=== PATIENT | female | born 1935 | race African-American/Black ===

== ENCOUNTER 2023-02-11 06:27 | Inpatient (IN) | payer MEDICARE, OTHER ==
[~2023-02-11] VITALS: Ht 162.6 cm; Wt 68.2 kg
[2023-02-11] MEDS ORDERED: ACETAMINOPHEN 1000 MG/ISO-OSM 100 ML IV ONE (06:45)
[2023-02-11] MEDS ORDERED: SODIUM CHLORIDE 0.9% 1,400 ML IV ONE (06:45)
[2023-02-11] MEDS ORDERED: 0.9% SODIUM CHLORIDE 10 ML SYRINGE IVP PRN (06:45)
[2023-02-11] MEDS ORDERED: VANCOMYCIN 1GM/WATER(PEG/NADA) 200 ML IV ONE (06:45)
[2023-02-11 06:58] LABS: HEMATOCRIT 26.8 % (36-46); HEMOGLOBIN 8.5 g/dL (12.0-16.0); MEAN CORPUSCULAR HEMOGLOBIN 35.6 pg (26.0-34.0); MEAN CORPUSCULAR HGB CONC 31.6 G/dL (31.0-37.0); MEAN CORPUSCULAR VOLUME 113 fL (80-100); PLATELET COUNT (AUTO) 204 K/uL (150-450); RED BLOOD CELL COUNT(AUTO) 2.38 MIL/uL (4.00-5.20); RED CELL DISTRIBUTION WIDTH 16.8 % (11.5-14.5); WHITE BLOOD COUNT (AUTO) 24.6 K/uL (4.5-11.0)
[2023-02-11 07:11] LABS: INR 1.5 (0.9-1.1); PROTHROMBIN TIME 15.7 SEC (9.4-11.6)
[2023-02-11 07:13] LABS: ALANINE AMINOTRANSFERASE 27 U/L (12-78); ALBUMIN 2.3 g/dL (3.4-5.0); ALKALINE PHOSPHATASE 81 U/L (46-116); ANION GAP 12 mmol/L (8-16); ASPARTATE AMINOTRANSFERASE 69 U/L (15-37); BILIRUBIN,TOTAL 0.6 mg/dL (0.1-1.0); CALCIUM, TOTAL 8.4 mg/dL (8.8-10.5); CARBON DIOXIDE 26 mmol/L (22-29); CHLORIDE 100 mmol/L (98-107); CREATININE 4.32 mg/dL (0.60-1.30); GLOMERULAR FILTR. RATE CALC 12 mL/min (>60); GLUCOSE,RANDOM 84 mg/dL (70-110); SODIUM SERUM 137 mmol/L (136-145); TOTAL PROTEIN, SERUM 7.7 g/dL (6.4-8.2); UREA NITROGEN, BLOOD 27 mg/dL (7-18)
[2023-02-11 07:14] LABS: POTASSIUM 2.7 mmol/L (3.5-5.1)
[2023-02-11 07:25] LABS: COVID AG,FIA SOURCE NASAL SWAB
[2023-02-11 07:25] LABS: LACTIC ACID 3.7 mmol/L (0.4-2.0)
[2023-02-11 07:29] LABS: TROPONIN I-HIGH SENSITIVITY 279 ng/L (<51)
[2023-02-11 07:30] LABS: B-TYPE NATRIURETIC PEPTIDE 1170 pg/mL (0-100)
[2023-02-11 07:35] LABS: BAND NEUTROPHILS % (MANUAL) 31 % (0-5); LYMPHOCYTES % (MANUAL) 2 % (22-44); METAMYELOCYTES % 1 % (0-0); MONOCYTES % (MANUAL) 5 % (2-9); MYELOCYTES % 1 % (0-0); SEGMENTED NEUTROPHILS % 60 % (40-70); TOTAL CELLS COUNTED 100
[2023-02-11 07:37] LABS: RBC MORPHOLOGY COMMENT ABNORMAL RBC MORPH
[2023-02-11 08:07] LABS: INFLUENZA TYPE A NEGATIVE FOR TYPE A (NEGATIVE); INFLUENZA TYPE B NEGATIVE FOR TYPE B (NEGATIVE); SARS-COV2 (COVID) ANTIGEN,FIA Negative (Negative)
[2023-02-11] MEDS ORDERED: PRED5DRO25 OD (09:13)
[2023-02-11] MEDS ORDERED: FLUT1BLS19 IH (09:13)
[2023-02-11] MEDS ORDERED: APIX2.5T PO (09:13)
[2023-02-11] MEDS ORDERED: FOLI0.8T22 PO (09:13)
[2023-02-11] MEDS ORDERED: BRIM5DRO10 OD (09:13)
[2023-02-11] MEDS ORDERED: DOCU-385 PO (09:13)
[2023-02-11] MEDS ORDERED: FERR325T27 PO (09:13)
[2023-02-11] MEDS ORDERED: SENN-376 PO (09:13)
[2023-02-11] MEDS ORDERED: BUDE10.26 IH (09:13)
[2023-02-11] MEDS ORDERED: ATOR40TA28 PO (09:13)
[2023-02-11] MEDS ORDERED: CLOP75TA60 PO (09:13)
[2023-02-11] MEDS ORDERED: TRAV2.5D7 OD (09:13)
[2023-02-11] MEDS ORDERED: EPOE10I SQ (09:13)
[2023-02-11] MEDS ORDERED: POTASSIUM CHL 10 MEQ/WATER 50 ML IV ONE (09:45)
[2023-02-11] MEDS ORDERED: NOREPINEPHRINE BITARTRATE 16 MG in SODIUM CHLORIDE 0.9% 234 ML IV PRN (10:00)
[2023-02-11] MEDS ORDERED: LORazepam 2 MG/ML VIAL IVP ONE (10:15)
[2023-02-11 12:00] VITALS: BP 87/55; PULSE 100; RESP 27; TEMP 97.9
[2023-02-11] MEDS ORDERED: GENTAMICIN 120 MG/NACL ISO-OSM 100 ML IV ONE (13:00)
[2023-02-11] MEDS ORDERED: GENTAMICIN 80 MG/NACL ISO-OSM 50 ML IV PRN (13:00)
[2023-02-11] MEDS ORDERED: SODIUM CHLORIDE 0.9% 250 ML IV ONE ×2 (13:10→13:50)
[2023-02-11] MEDS: FOLIC ACID/VIT B COMPLEX AND C TABLET PO SCH (15:00)
[2023-02-11] MEDS ORDERED: BISACODYL 10 MG RECTAL RECTAL SUPPOSITORY PR PRN (15:15)
[2023-02-11] MEDS ORDERED: MAGNESIUM HYDROXIDE SUSPENSION 30 ML UDCUP PO PRN (15:15)
[2023-02-11] MEDS ORDERED: ACETAMINOPHEN 325 MG TABLET PO PRN (15:15)
[2023-02-11] MEDS ORDERED: ZOLPIDEM TARTRATE 5 MG TABLET PO PRN (15:15)
[2023-02-11] MEDS ORDERED: ONDANSETRON HCL 4 MG/2 ML VIAL IVP PRN (15:15)
[2023-02-11] MEDS ORDERED: HYDROCODONE/ACETAMINOPHEN 5-325 MG TABLET PO PRN (15:15)
[2023-02-11] MEDS ORDERED: MORPHINE SULFATE 2 MG/ML SYRINGE IVP PRN (15:15)
[2023-02-11 15:31] LABS: CREATININE 4.43 mg/dL (0.60-1.30); POTASSIUM 3.2 mmol/L (3.5-5.1)
[2023-02-11 15:35] LABS: MAGNESIUM 1.6 mg/dL (1.80-2.40); PHOSPHORUS 2.4 mg/dL (2.5-4.9)
[2023-02-11] MEDS ORDERED: *CLINICAL-LEVOFLOXACIN IVPB DOSING CLINICAL ONE (15:45)
[2023-02-11] MEDS ORDERED: LEVOFLOXACIN 750 MG/D5% WATER 150 ML IV ONE (16:00)
[2023-02-11] MEDS ORDERED: VANCOMYCIN HCL 1 GM in DEXTROSE 5%-WATER 250 ML IV PRN (16:15)
[2023-02-11 16:48] LABS: ABG BASE EXCESS -8.6 mmol/L (-2.0-3.0); ABG CARBOXYHEMOGLOBIN 0.9 % (0.0-1.5); ABG HCO3 17.5 mmol/L (22.0-26.0); ABG METHEMOGLOBIN 0.3 % (0.0-1.5); ABG OXYGEN CONTENT 11.9 mL/dL (15.0-23.0); ABG OXYHEMOGLOBIN 80.3 % (94.0-100.0); ABG PCO2 45 mmHg (35-45); ABG PH 7.242 (7.35-7.450); ABG TOTAL HEMOGLOBIN 10.5 G/dL (12.0-18.0); PO2, ARTERIAL BG 51.8 mmHg (71.0-79.0); SOURCE, BLOOD GAS ARTERIAL
[2023-02-11 16:50] LABS: ABG OXYGEN SATURATION 81.3 % (95.0-98.0); ALLEN TEST, BLOOD GAS POS; O2 DEVICE,BLOOD GAS NONREB (ROOM AIR); SITE, BLOOD GAS LFT BRACHIAL
[2023-02-11] MEDS: MetroNIDAZOLE 500 MG/NACL 100 ML IV SCH (17:06)
[2023-02-11] MEDS: HEPARIN SODIUM,PORCINE 5,000 UNITS/ML VIAL SQ SCH (17:06)
[2023-02-11] MEDS ORDERED: ETOMIDATE 2 MG/ML 10 ML VIAL ONE (17:10)
[2023-02-11] MEDS ORDERED: ROCURONIUM BROMIDE 10 MG/ML 5 ML VIAL IVP ONE (17:15)
[2023-02-11] MEDS ORDERED: ETOMIDATE 2 MG/ML 10 ML VIAL IVP ONE (17:15)
[2023-02-11 17:25] VITALS: PULSE 89; RESP 22; O2SAT 80
[2023-02-11] MEDS ORDERED: PROPOFOL 1000 MG/ISO-OSM 100 ML IV PRN (17:30)
[2023-02-11] MEDS: PHENYLEPHRINE 200 MG/D5%-WATER 250 ML IV PRN (17:38)
[2023-02-11 18:36] LABS: GLUCOMETER DEV NAME(LOC) ERT.5; GLUCOSE,POINT OF CARE 61 MG/DL (70-110)
[2023-02-11 19:11] LABS: ABG BASE EXCESS -7.8 mmol/L (-2.0-3.0); ABG CARBOXYHEMOGLOBIN 0.8 % (0.0-1.5); ABG HCO3 18.3 mmol/L (22.0-26.0); ABG METHEMOGLOBIN 0.3 % (0.0-1.5); ABG OXYGEN CONTENT 13.7 mL/dL (15.0-23.0); ABG OXYGEN SATURATION 90.9 % (95.0-98.0); ABG OXYHEMOGLOBIN 89.9 % (94.0-100.0); ABG PCO2 43 mmHg (35-45); ABG PH 7.268 (7.35-7.450); ABG TOTAL HEMOGLOBIN 10.8 G/dL (12.0-18.0); PO2, ARTERIAL BG 65.1 mmHg (71.0-79.0); SOURCE, BLOOD GAS ARTERIAL; TEMPERATURE, FAHRENHEIT, BG 97.9 FAHREN (96.0-98.6)
[2023-02-11 19:12] LABS: ABG A-A DIFF O2 606.1 mmHg (10-20.0); ALLEN TEST, BLOOD GAS Positive; O2 DEVICE,BLOOD GAS VENT (ROOM AIR); PEEP,BG 8 cm H2O; SITE, BLOOD GAS LFT RADIAL; VT, ABG 400 ml
[2023-02-11 19:40] VITALS: PULSE 115; RESP 22; O2SAT 96
[2023-02-11 20:00] VITALS: BP 130/56; PULSE 115; RESP 22; TEMP 98.9
[2023-02-11] MEDS: ATORVASTATIN CALCIUM 40 MG TABLET PO SCH (21:02)
[2023-02-11] MEDS: DOCUSATE SODIUM 100 MG CAPSULE PO SCH (21:02)
[2023-02-11 21:50] VITALS: PULSE 110; RESP 22; O2SAT 87
[2023-02-11] MEDS: VASOPRESSIN 40 UNITS in DEXTROSE 5%-WATER 98 ML IV PRN (23:29)
[2023-02-11] MEDS ORDERED: DOPamine 400MG/D5W[STANDARD] 250 ML IV ONE (23:32)
[2023-02-11] MEDS: DOPamine 400MG/D5W[STANDARD] 250 ML IV PRN (23:45)
[2023-02-12] VITALS (17 sets, daily range): BP systolic 94–132; BP diastolic 32–61; PULSE 59–127; RESP 14–33; TEMP 94.1–100.6; O2SAT 0–95
[2023-02-12] MEDS ORDERED: DEXTROSE 50%-WATER 25 GM/50 ML SYRINGE IVP PRN
[2023-02-12] MEDS: HEPARIN SODIUM,PORCINE 5,000 UNITS/ML VIAL SQ SCH ×4 (00:52→23:48)
[2023-02-12] MEDS: MetroNIDAZOLE 500 MG/NACL 100 ML IV SCH ×3 (00:52→16:28)
[2023-02-12] MEDS ORDERED: DEXTROSE 50%-WATER 25 GM/50 ML SYRINGE IVP ONE (00:57)
[2023-02-12 01:31] LABS: GLUCOSE,POINT OF CARE 19 MG/DL (70-110)
[2023-02-12 01:51] LABS: GLUCOSE,POINT OF CARE 103 MG/DL (70-110)
[2023-02-12 02:06] LABS: GLUCOSE,POINT OF CARE 70 MG/DL (70-110)
[2023-02-12 02:31] LABS: GLUCOSE,POINT OF CARE 81 MG/DL (70-110)
[2023-02-12] MEDS: NOREPINEPHRINE BITARTRATE 16 MG in SODIUM CHLORIDE 0.9% 234 ML IV PRN ×2 (02:31→12:40)
[2023-02-12 02:53] LABS: ABG BASE EXCESS -17.6 mmol/L (-2.0-3.0); ABG CARBOXYHEMOGLOBIN 0.7 % (0.0-1.5); ABG HCO3 11.5 mmol/L (22.0-26.0); ABG METHEMOGLOBIN 0.3 % (0.0-1.5); ABG OXYGEN SATURATION 87.1 % (95.0-98.0); ABG OXYHEMOGLOBIN 86.2 % (94.0-100.0); ABG PCO2 43 mmHg (35-45); ABG TOTAL HEMOGLOBIN 10.7 G/dL (12.0-18.0); SOURCE, BLOOD GAS ARTERIAL
[2023-02-12 03:36] LABS: ABG A-A DIFF O2 600.4 mmHg (10-20.0); ABG PH 7.081 (7.35-7.450); O2 DEVICE,BLOOD GAS VENT (ROOM AIR); SITE, BLOOD GAS LFT RADIAL
[2023-02-12 03:37] LABS: PEEP,BG 10 cm H2O; VT, ABG 400 ml
[2023-02-12] MEDS ORDERED: SODIUM BICARBONATE [ADULT] 8.4% 50 MEQ/50 ML SYRINGE IVP ONE (03:45)
[2023-02-12 03:56] LABS: GLUCOSE,POINT OF CARE 83 MG/DL (70-110)
[2023-02-12] MEDS: PHENYLEPHRINE 200 MG/D5%-WATER 250 ML IV PRN ×2 (04:11→14:03)
[2023-02-12 05:36] LABS: GLUCOSE,POINT OF CARE 85 MG/DL (70-110)
[2023-02-12 06:36] LABS: GLUCOSE,POINT OF CARE 74 MG/DL (70-110)
[2023-02-12] MEDS: DOPamine 400MG/D5W[STANDARD] 250 ML IV PRN ×4 (07:19→23:45)
[2023-02-12] MEDS: DOCUSATE SODIUM 100 MG CAPSULE PO SCH ×2 (08:03→21:09)
[2023-02-12] MEDS: FOLIC ACID/VIT B COMPLEX AND C TABLET PO SCH (08:03)
[2023-02-12] MEDS: ETHYL ALCOHOL 62% ANTISEPTIC NASAL SANITIZER 0.6 ML AMPUL NASAL SCH ×2 (08:03→21:08)
[2023-02-12] MEDS: DEXTROSE 50%-WATER 25 GM/50 ML SYRINGE IVP PRN ×2 (08:03→13:25)
[2023-02-12] MEDS: PANTOPRAZOLE SODIUM 40 MG DR TABLET PO SCH (08:04)
[2023-02-12] MEDS ORDERED: SODIUM BICARBONATE 150 MEQ in DEXTROSE 5%-WATER 1,000 ML IV SCH (08:30)
[2023-02-12 08:31] LABS: MEAN CORPUSCULAR HEMOGLOBIN 35.6 pg (26.0-34.0); MEAN CORPUSCULAR HGB CONC 29.3 G/dL (31.0-37.0); MEAN CORPUSCULAR VOLUME 122 fL (80-100); PLATELET COUNT (AUTO) 153 K/uL (150-450); RED CELL DISTRIBUTION WIDTH 17.9 % (11.5-14.5); WHITE BLOOD COUNT (AUTO) 8.2 K/uL (4.5-11.0)
[2023-02-12 08:33] LABS: B-TYPE NATRIURETIC PEPTIDE 2110 pg/mL (0-100)
[2023-02-12 08:39] LABS: ALBUMIN 2.1 g/dL (3.4-5.0); BILIRUBIN,TOTAL 0.7 mg/dL (0.1-1.0); CALCIUM, TOTAL 8.3 mg/dL (8.8-10.5); CREATININE 5.07 mg/dL (0.60-1.30); MAGNESIUM 1.9 mg/dL (1.80-2.40); POTASSIUM 3.6 mmol/L (3.5-5.1)
[2023-02-12 08:43] LABS: LACTIC ACID 11.5 mmol/L (0.4-2.0)
[2023-02-12 08:43] LABS: TROPONIN I-HIGH SENSITIVITY 2570 ng/L (<51)
[2023-02-12] MEDS ORDERED: -HEMODIALYSIS NOTE- MISC SCH (09:00)
[2023-02-12] MEDS ORDERED: SODIUM CHLORIDE 0.9% 2,000 ML ONE (09:02)
[2023-02-12 09:34] LABS: BAND NEUTROPHILS % (MANUAL) 35 % (0-5); EOSINOPHILS % (MANUAL) 1 % (1-6); LYMPHOCYTES % (MANUAL) 11 % (22-44); METAMYELOCYTES % 5 % (0-0); MONOCYTES % (MANUAL) 5 % (2-9); MYELOCYTES % 1 % (0-0); REACTIVE LYMPHOCYTES 3 % (0-0); SEGMENTED NEUTROPHILS % 39 % (40-70); TOTAL CELLS COUNTED 100
[2023-02-12] MEDS ORDERED: SODIUM CHLORIDE 0.9% 500 ML IV ONE (11:22)
[2023-02-12] MEDS ORDERED: *CLINICAL-AZTREONAM DOSING CLINICAL ONE (13:00)
[2023-02-12] MEDS ORDERED: *CLINICAL-MEROPENEM DOSING CLINICAL ONE (13:15)
[2023-02-12] MEDS ORDERED: AZTREONAM 2 GM in DEXTROSE 5%-WATER 50 ML IV ONE (14:00)
[2023-02-12] MEDS ORDERED: DEXTROSE 5%-0.45% SODIUM CHL 500 ML IV ONE ×2 (14:15)
[2023-02-12] MEDS ORDERED: VANCOMYCIN HCL 500 MG in DEXTROSE 5%-WATER 100 ML IV ONE (15:00)
[2023-02-12] MEDS: MEROPENEM 1 GM in SODIUM CHLORIDE 0.9% 100 ML IV SCH ×2 (15:53→21:58)
[2023-02-12] MEDS ORDERED: LEVOFLOXACIN 500 MG/D5% WATER 100 ML IV SCH (16:00)
[2023-02-12] MEDS: VASOPRESSIN 40 UNITS in DEXTROSE 5%-WATER 98 ML IV PRN (16:26)
[2023-02-12] MEDS: DEXTROSE 10% IV SCH (16:26)
[2023-02-12] MEDS: SODIUM BICARBONATE IV SCH (16:26)
[2023-02-12] MEDS: WATER IV SCH (16:26)
[2023-02-12] MEDS ORDERED: GENTAMICIN 100 MG/NACL ISO-OSM 50 ML IV SCH (17:00)
[2023-02-12 17:37] LABS: HEMATOCRIT 31.9 % (36-46); HEMOGLOBIN 8.7 g/dL (12.0-16.0); MEAN CORPUSCULAR HEMOGLOBIN 35.7 pg (26.0-34.0); MEAN CORPUSCULAR HGB CONC 27.3 G/dL (31.0-37.0); MEAN CORPUSCULAR VOLUME 131 fL (80-100); PLATELET COUNT (AUTO) 121 K/uL (150-450); RED BLOOD CELL COUNT(AUTO) 2.44 MIL/uL (4.00-5.20); RED CELL DISTRIBUTION WIDTH 18.6 % (11.5-14.5); WHITE BLOOD COUNT (AUTO) 11.9 K/uL (4.5-11.0)
[2023-02-12] MEDS: POTASSIUM CHLORIDE 20 MEQ in NXSTAGE RFP-402 K0/CA3 5,000 ML IRRIG PRN ×2 (17:39→17:40)
[2023-02-12 17:49] LABS: POTASSIUM 3.9 mmol/L (3.5-5.1)
[2023-02-12 17:57] LABS: CALCIUM, TOTAL 8.3 mg/dL (8.8-10.5); CREATININE 4.47 mg/dL (0.60-1.30); PHOSPHORUS 4.2 mg/dL (2.5-4.9)
[2023-02-12] MEDS ORDERED: SODIUM CHLORIDE 0.9% 250 ML IV ONE (18:02)
[2023-02-12 18:15] LABS: TROPONIN I-HIGH SENSITIVITY 2643 ng/L (<51)
[2023-02-12 18:41] LABS: BAND NEUTROPHILS % (MANUAL) 41 % (0-5); LYMPHOCYTES % (MANUAL) 12 % (22-44); METAMYELOCYTES % 6 % (0-0); MONOCYTES % (MANUAL) 4 % (2-9); MYELOCYTES % 1 % (0-0); SEGMENTED NEUTROPHILS % 36 % (40-70); TOTAL CELLS COUNTED 100
[2023-02-12 18:42] LABS: RBC MORPHOLOGY COMMENT ABNORMAL RBC MORPH; WBC MORPHOLOGY TOXIC GRANULATION
[2023-02-12] MEDS: ATORVASTATIN CALCIUM 40 MG TABLET PO SCH (21:09)
[2023-02-12 21:21] LABS: GLUCOSE,POINT OF CARE 87 MG/DL (70-110)
[2023-02-12 21:21] LABS: GLUCOSE,POINT OF CARE 96 MG/DL (70-110)
[2023-02-12 21:21] LABS: GLUCOSE,POINT OF CARE 174 MG/DL (70-110)
[2023-02-12 21:21] LABS: GLUCOSE,POINT OF CARE 77 MG/DL (70-110)
[2023-02-12 21:21] LABS: GLUCOSE,POINT OF CARE 70 MG/DL (70-110)
[2023-02-12 21:21] LABS: GLUCOSE,POINT OF CARE 130 MG/DL (70-110)
[2023-02-12 21:21] LABS: GLUCOSE,POINT OF CARE 83 MG/DL (70-110)
[2023-02-12 21:21] LABS: GLUCOSE,POINT OF CARE 88 MG/DL (70-110)
[2023-02-12 21:21] LABS: GLUCOSE,POINT OF CARE 116 MG/DL (70-110)
[2023-02-12 21:21] LABS: GLUCOSE,POINT OF CARE 109 MG/DL (70-110)
[2023-02-12 21:21] LABS: GLUCOSE,POINT OF CARE 119 MG/DL (70-110)
[2023-02-12 21:21] LABS: GLUCOSE,POINT OF CARE 88 MG/DL (70-110)
[2023-02-12 21:21] LABS: GLUCOSE,POINT OF CARE 69 MG/DL (70-110)
[2023-02-12 21:21] LABS: GLUCOSE,POINT OF CARE 104 MG/DL (70-110)
[2023-02-12 21:21] LABS: GLUCOSE,POINT OF CARE 151 MG/DL (70-110)
[2023-02-12] MEDS ORDERED: AZTREONAM 1 GM in DEXTROSE 5%-WATER 50 ML IV SCH (22:00)
[2023-02-13] VITALS (10 sets, daily range): BP systolic 83–123; BP diastolic 33–63; PULSE 64–90; RESP 22–26; TEMP 93.9–94.3; O2SAT 78–97
[2023-02-13 00:11] LABS: GLUCOSE,POINT OF CARE 140 MG/DL (70-110)
[2023-02-13 00:11] LABS: GLUCOSE,POINT OF CARE 216 MG/DL (70-110)
[2023-02-13] MEDS: NOREPINEPHRINE BITARTRATE 16 MG in SODIUM CHLORIDE 0.9% 234 ML IV PRN ×2 (00:28→07:45)
[2023-02-13] MEDS: PHENYLEPHRINE 200 MG/D5%-WATER 250 ML IV PRN (00:56)
[2023-02-13] MEDS: POTASSIUM CHLORIDE 20 MEQ in NXSTAGE RFP-402 K0/CA3 5,000 ML IRRIG PRN ×2 (02:48→02:49)
[2023-02-13] MEDS: WATER IV SCH (04:32)
[2023-02-13] MEDS: DEXTROSE 10% IV SCH (04:32)
[2023-02-13] MEDS: SODIUM BICARBONATE IV SCH (04:32)
[2023-02-13] MEDS: DOPamine 400MG/D5W[STANDARD] 250 ML IV PRN ×2 (05:10→10:08)
[2023-02-13] MEDS: MEROPENEM 1 GM in SODIUM CHLORIDE 0.9% 100 ML IV SCH (05:49)
[2023-02-13 06:16] LABS: GLUCOSE,POINT OF CARE 236 MG/DL (70-110)
[2023-02-13 06:16] LABS: GLUCOSE,POINT OF CARE 249 MG/DL (70-110)
[2023-02-13 06:16] LABS: GLUCOSE,POINT OF CARE 276 MG/DL (70-110)
[2023-02-13 07:32] LABS: CALCIUM, TOTAL 7.8 mg/dL (8.8-10.5); CREATININE 3.38 mg/dL (0.60-1.30); MAGNESIUM 1.7 mg/dL (1.80-2.40); PHOSPHORUS 2.9 mg/dL (2.5-4.9); POTASSIUM 3.8 mmol/L (3.5-5.1); VANCOMYCIN,RANDOM 13.7 mcg/mL (25.0-50.0)
[2023-02-13 07:36] LABS: TROPONIN I-HIGH SENSITIVITY 2123 ng/L (<51)
[2023-02-13 07:45] LABS: HEMATOCRIT 29.5 % (36-46); HEMOGLOBIN 8.4 g/dL (12.0-16.0); MEAN CORPUSCULAR HEMOGLOBIN 36.5 pg (26.0-34.0); MEAN CORPUSCULAR HGB CONC 28.4 G/dL (31.0-37.0); MEAN CORPUSCULAR VOLUME 129 fL (80-100); RED CELL DISTRIBUTION WIDTH 18.3 % (11.5-14.5); WHITE BLOOD COUNT (AUTO) 7.3 K/uL (4.5-11.0)
[2023-02-13 07:51] LABS: PLATELET COUNT (AUTO) 142 K/uL (150-450)
[2023-02-13 07:53] LABS: BAND NEUTROPHILS % (MANUAL) 39 % (0-5); LYMPHOCYTES % (MANUAL) 11 % (22-44); METAMYELOCYTES % 4 % (0-0); MONOCYTES % (MANUAL) 4 % (2-9); MYELOCYTES % 1 % (0-0); RBC MORPHOLOGY COMMENT ABNORMAL R; SEGMENTED NEUTROPHILS % 41 % (40-70); TOTAL CELLS COUNTED 100
[2023-02-13] MEDS: FOLIC ACID/VIT B COMPLEX AND C TABLET PO SCH (08:36)
[2023-02-13] MEDS: PANTOPRAZOLE SODIUM 40 MG DR TABLET PO SCH (08:36)
[2023-02-13] MEDS: HEPARIN SODIUM,PORCINE 5,000 UNITS/ML VIAL SQ SCH (08:36)
[2023-02-13] MEDS: DOCUSATE SODIUM 100 MG CAPSULE PO SCH (08:37)
[2023-02-13] MEDS: ETHYL ALCOHOL 62% ANTISEPTIC NASAL SANITIZER 0.6 ML AMPUL NASAL SCH (08:39)
[2023-02-13 08:40] LABS: INR 3.9 (0.9-1.1); PROTHROMBIN TIME 37.2 SEC (9.4-11.6)
[2023-02-13] MEDS ORDERED: VANCOMYCIN HCL 750 MG in DEXTROSE 5%-WATER 250 ML IV ONE (09:00)
[2023-02-13] MEDS ORDERED: EPOETIN ALFA 10,000 UNITS/ML VIAL SQ SCH (09:00)
[2023-02-13] MEDS ORDERED: SODIUM CHLORIDE 0.9% 500 ML IV ONE (09:58)
[2023-02-13] MEDS ORDERED: MORPHINE SULFATE 2 MG/ML SYRINGE IVP PRN (11:15)
== END 2023-02-13 14:10 | DRG 871 ==
LOC: EMS 06:27 → ICU 08:52
PROVIDERS: ADMIT Internal Medicine; ATTEND Internal Medicine
PROC: 02HV33Z Insertion of Infusion Device into Superior Vena Cava, Percutaneous Approach (ICD-10-PCS; principal; 2023-02-11)
PROC: B548ZZA Ultrasonography of Superior Vena Cava, Guidance (ICD-10-PCS; 2023-02-11)
PROC: 0BH17EZ Insertion of Endotracheal Airway into Trachea, Via Natural or Artificial Opening (ICD-10-PCS; 2023-02-11)
PROC: 5A1945Z Respiratory Ventilation, 24-96 Consecutive Hours (ICD-10-PCS; 2023-02-11)
PROC: 04HY32Z Insertion of Monitoring Device into Lower Artery, Percutaneous Approach (ICD-10-PCS; 2023-02-13)
DX: A41.9 Sepsis, unspecified organism (principal); E43 Unspecified severe protein-calorie malnutrition; J69.0 Pneumonitis due to inhalation of food and vomit; N18.6 End stage renal disease; R65.21 Severe sepsis with septic shock; G93.41 Metabolic encephalopathy; I21.A1 Myocardial infarction type 2; J96.01 Acute respiratory failure with hypoxia; I13.2 Hypertensive heart and chronic kidney disease with heart failure and with stage 5 chronic kidney disease, or end stage renal disease; L03.116 Cellulitis of left lower limb; I48.19 Other persistent atrial fibrillation; E87.20 Acidosis, unspecified; E11.649 Type 2 diabetes mellitus with hypoglycemia without coma; D64.9 Anemia, unspecified; E11.22 Type 2 diabetes mellitus with diabetic chronic kidney disease; E87.6 Hypokalemia; I50.9 Heart failure, unspecified; I46.9 Cardiac arrest, cause unspecified; Z66 Do not resuscitate; E78.5 Hyperlipidemia, unspecified; D69.6 Thrombocytopenia, unspecified; E83.42 Hypomagnesemia; I25.10 Atherosclerotic heart disease of native coronary artery without angina pectoris; G47.30 Sleep apnea, unspecified; Z20.822 Contact with and (suspected) exposure to COVID-19; E11.51 Type 2 diabetes mellitus with diabetic peripheral angiopathy without gangrene; J44.9 Chronic obstructive pulmonary disease, unspecified; Z79.01 Long term (current) use of anticoagulants; Z85.42 Personal history of malignant neoplasm of other parts of uterus; Z79.899 Other long term (current) drug therapy; Z91.041 Radiographic dye allergy status; Z91.012 Allergy to eggs; Z91.040 Latex allergy status; Z88.0 Allergy status to penicillin; Z99.2 Dependence on renal dialysis; Z91.013 Allergy to seafood; Z95.0 Presence of cardiac pacemaker
CPT/HCPCS: 36600; 51701; 70450; 71045; 71250; 76700; 80048; 80053; 80202; 82805; 82962; 83605; 83735; 83880; 84100; 84145; 84484; 85025; 85384; 85610; 85730; 87040; 87070; 87077; 87081; 87186; 87205; 87804; 90947; 93005; 93306; 93926; 93971; 94002; 94003; 99291; J0131; J0885; J1265; J1580; J1644; J1956; J2060; J2185; J2270; J2370; J2704; J3370; J3480; J3490; J7030; J7040; J7050; J7060; Q9967; 36415-L1; 36415-TC